=== PATIENT | female | born 1950 | race Caucasian/White ===

== ENCOUNTER 2022-01-05 06:55 | Day surgery (SDC) | payer MEDICARE ==
[~2022-01-05] VITALS: Ht 170.2 cm; Wt 106.0 kg
[~2022-01-05 06:55] MED LIST: ALPR.25 PO; ASPI81CH PO; COENZYME Q10100 MG PO; Hydrochlorothia25 MG PO; MELO7.5 PO; METO25 PO; ROSU5 PO; ZYPITAMAG2 MG PO
--- NOTE | 2022-01-05 19:23 | NUR ---
SHIFT SUMMARY POD 0 L TKA, A/OX 4, VSS, TOLERATING PO, DID WELL AMBULATING c PHYSICAL THERAPY, SPENT PART OF THE DAY UP TO CHAIR AFTER SHE GOT UP THE FIRST TIME, SPINAL SO THIS WAS DONE AFTER GETTING SENSATION IN THE LEGS. PAIN WAS MINIMAL AND CONTROLLED USING ONLY THE NON NARCOTIC SCHEDULED MEDICATIONS. PT WAS A LITTLE ANXIOUS WHEN SHE FIRST CAME OUT TO THE FLOOR, BP WAS A LITTLE LOW BUT WITHIN NORMAL LIMITS (SEE VITALS), PT HAD SOME MILD TREMORS BUE, XANAX GIVEN, WARM BLANKET GIVEN, THERAPEUTIC COMMUNICATION WAS USED TO DISCUSS NEXT STEPS/HOME CARE/INITIAL RECOVERY WHICH HELPED HER SETTLE DOWN. NO ACUTE EVENTS THIS SHIFT, CALL LIGHT IN REACH, REPORT GIVEN TO NEVAEH RN.
--- NOTE | 2022-01-06 04:02 | NUR ---
SHIFT SUMMARY POD1 L TKA. EMILIANO WRAP TO KNEE REMAINS CDI WITH POLAR PACK IN PLACE. UP WITH 1 SBA USING GB + WALKER. 2 OLI + TYLENOL + TORADOL FOR PAIN MANAGEMENT. IV SL. SAKSHI PO. USES CALL LIGHT APPROPRIATELY.
[2022-01-06 05:07] LABS: BASOPHILS ABSOLUTE AUTO 0.06 K/mm3 (0.00-0.23); BASOPHILS PERCENT AUTO 1 % (0-2); EOSINOPHILS ABSOLUTE AUTO 0.36 K/mm3 (0.00-0.68); EOSINOPHILS PERCENT AUTO 4 % (0-6); Hematocrit 39.4 % (33.0-51.0); IMMATURE GRAN ABSOLUTE AUTO 0.03 K/mm3 (0.00-0.10); IMMATURE GRAN PERCENT AUTO 0 % (0-1); LYMPHOCYTES PERCENT AUTO 12 % (21-46); MONOCYTES PERCENT AUTO 11 % (4-13); Mean Corpuscular HGB 30.2 pg (26.0-34.0); Mean Corpuscular Volume 91 fL (80-100); Mean Platelet Volume 9.7 fL (9.1-12.4); NEUTROPHILS ABSOLUTE AUTO 7.52 K/mm3 (1.96-9.15); NEUTROPHILS PERCENT AUTO 73 % (41-73); Platelet Count 221 K/mm3 (150-400); RDW Coefficient Variation 13.2 % (11.7-14.2); RDW Standard Deviation 44.7 fL (35.1-46.3); Red Blood Cell Count 4.31 M/mm3 (3.80-5.20); White Blood Cell Count 10.27 K/mm3 (4.00-11.30)
[2022-01-06 05:23] LABS: Bun/Creatinine Ratio 22.7 (12.0-20.0); Calcium, Blood 8.7 mg/dL (8.5-10.1); Creatinine, Blood 1.28 mg/dL (0.40-1.00); Potassium, Blood 3.7 mmol/L (3.5-5.5)
[2022-01-06] MEDS ORDERED: ASPIR 8181 M1 PO (11:47)
[2022-01-06] MEDS ORDERED: Percocet 5-3251 EACH PO (11:48)
--- NOTE | 2022-01-06 12:39 | NUR ---
DISCHARGE SUMMARY PT A&OX4, VSS/RA, DENIES N&V AT THIS TIME, SAKSHI PO, PAIN MANAGED WELL WITH TYLENOL AND OXY 5 MG, VOIDING WELL. DC INSTRUC PROVIDED, PT REP UNDERSTANDING THOSE INSTRUCTIONS INCLUDING FU WITH SURGEON 2 WEEKS, DRESSING CHANGES, SHORT FREQU WALKS WITH FWW, EXERCISES WITH GAIT BELT TAUGHT BY SURGEON, PHYSICAL THERAPY, AND ICE AND ELEVATE AT REST. LEFT FLOOR VIA WC WITH STOCK MIXER, ALL PERSONAL POSSESSIONS INCLUDING DC PACKET, 2 AQUACEL DRESSINGS AND 1 NARC SCRIPT; TO GO HOME WITH . IV DC'D.
== END 2022-01-06 12:20 | disposition home or self-care (01) ==
LOC: ORSCMMR 06:55 → SURS 11:06 → ORSCMMR 01-06 12:20
PROVIDERS: Orthopaedic Surgery
PROC: 0SRD0JA Replacement of Left Knee Joint with Synthetic Substitute, Uncemented, Open Approach (ICD-10-PCS; principal; 2022-01-05 08:30)
DX: M17.12 Unilateral primary osteoarthritis, left knee (principal); Z87.891 Personal history of nicotine dependence; I10 Essential (primary) hypertension; E78.00 Pure hypercholesterolemia, unspecified; F41.9 Anxiety disorder, unspecified; Z79.899 Other long term (current) drug therapy; Z79.82 Long term (current) use of aspirin; E78.5 Hyperlipidemia, unspecified; N18.9 Chronic kidney disease, unspecified; E66.9 Obesity, unspecified; Z68.36 Body mass index [BMI] 36.0-36.9, adult
CPT/HCPCS: 36415; 73560-LT; 80048; 85025; 97110; 97116; 97162; A9270; C1776; J0171; J0690; J0735; J1885; J2250; J2370; J2405; J2704; J2795; J3010; J7120

== ENCOUNTER 2024-05-01 07:50 | Day surgery (SDC) | payer MEDICARE ==
[~2024-05-01] VITALS: Ht 169 cm; Wt 104.7 kg
[2024-05-01] VITALS (11 sets, daily range): BP systolic 96–150; BP diastolic 55–95
[~2024-05-01 07:50] MED LIST changes: +ASPIR 8181 M1 PO; +Acetaminophen 500 MG Tab PO SCH; +CENTRUM SILVER1 EAC2 PO; +CeFAZolin Sodium 2,000 MG in NS 100 ML IV SCH; +Chlorhexidine Mouth Care 15 ML UDC MT SCH; +Lactated Ringer's 1,000 ML IV SCH; +OLMESARTAN MEDOX5 MG PO; +OxyCODONE HCL 10 MG TABCR PO SCH; +Percocet 5-3251 EACH PO; +REPATHA SU140 MG/1 M SC; +Ropivacaine 0.5% HCl/Pf 123.125 MG,EPINEPHrine HCL 0.25 MG,Ketorolac Tromethamine 15 MG... INFIL SCH; +ZYRTEC10 M1 PO
[2024-05-01] MEDS ORDERED: Tranexamic Acid 100 ML IV SCH (07:51)
[2024-05-01] MEDS ORDERED: propofoL 60 ML IV ONE (08:32)
[2024-05-01] MEDS ORDERED: FentaNYL Citrate 50 MCG/ML 2 ML Injection ONE (08:32)
[2024-05-01] MEDS ORDERED: Dexamethasone Sod Phos 10 MG/ML 1ML VIAL ONE (08:37)
[2024-05-01] MEDS ORDERED: Ondansetron HCl 2 MG / ML 2ML Vial ONE (08:37)
[2024-05-01] MEDS ORDERED: Phenylephrine HCl 100 MCG/ML-NS 10MLSYR (1MG/10ML) ONE (08:37)
[2024-05-01] MEDS ORDERED: DiphenhydrAMINE HCL 25 MG Cap PO PRN (09:30)
[2024-05-01] MEDS ORDERED: TraMADol HCl 50 MG Tab PO PRN (09:35)
[2024-05-01] MEDS ORDERED: HYDROmorphone HCl/Pf 1MG SYR IV PRN (09:35)
[2024-05-01] MEDS ORDERED: Promethazine HCl 25 MG Tab PO PRN (09:35)
[2024-05-01] MEDS ORDERED: Bisacodyl 10 MG Supp PR PRN (09:35)
[2024-05-01] MEDS ORDERED: Magnesium Hydroxide Conc 10 ML UDC PO PRN (09:40)
[2024-05-01] MEDS ORDERED: Metoclopramide HCl 5MG / ML 2ML Vial IV PRN (09:40)
[2024-05-01] MEDS ORDERED: Lactated Ringer's 1,000 ML IV SCH (09:40)
[2024-05-01] MEDS ORDERED: Ondansetron HCl 2 MG / ML 2ML Vial IV PRN (09:40)
[2024-05-01] MEDS ORDERED: propofoL 20 ML IV ONE (09:43)
[2024-05-01] MEDS ORDERED: Loratadine 10 MG Tab PO PRN (10:05)
[2024-05-01] MEDS ORDERED: propofoL 40 ML IV ONE (10:14)
--- NOTE | 2024-05-01 11:30 | NUR ---
ARRIVAL TO UNIT PT ARRIVED TO UNIT VIA BED. A&0 x4 VSS. PT DENIES NAUSEA. IV FLUIDS INFUSING PER EMAR. PT NUMB R/T SPINAL. PT DENIES TINGLING, BRISK CAP REFILL. AWAITING FIRST POST-OP AMBULATION & VOID. RICH AT BEDSIDE. ORIENTED TO ROOM, CALL LIGHT IN REACH, BED IN LOWEST POSITION.
[2024-05-01] MEDS ORDERED: ASPI81CH PO (11:36)
[2024-05-01] MEDS ORDERED: Ketorolac Tromethamine 15mg Vial IV SCH (12:00)
[2024-05-01] MEDS ORDERED: Acetaminophen 500 MG Tab PO SCH (16:00)
[2024-05-01] MEDS ORDERED: CeFAZolin Sodium 2,000 MG in NS 100 ML IV SCH (17:00)
--- NOTE | 2024-05-01 17:24 | NUR ---
DISCHARGE SUMMARY POD 0 R TKA. VSS. TOLERATING ORALS, DENIES N/V. AMBULATES USING FWW c GB & SBA. CLEARED PHYSCIAL THERAPY. VOIDING IND. PT REPORTS PAIN TOLERABLE ON ORAL MEDICATIONS, MEDICATED PER EMAR & POLAR PACK IN USE. ALL PERSONAL BELONGINGS c PT. DISCHARGE INSTRUCTIONS GIVEN, PT VERBALIZES UNDERSTANDING. D/C'd VIA WHEELCHAIR TO POV DRIVEN BY SPOUSE.
[2024-05-01] MEDS ORDERED: Losartan Potassium 25 MG Tab PO SCH (21:00)
[2024-05-01] MEDS ORDERED: Docusate Sodium 100 MG Cap PO SCH (21:00)
[2024-05-02] MEDS ORDERED: Aspirin 81 MG Chew PO SCH (09:00)
[2024-05-02] MEDS ORDERED: Multivitamins/Minerals 1 Tab PO SCH (09:00)
[2024-05-06] MEDS ORDERED: Misc. Injectable SC SCH (09:00)
== END 2024-05-01 17:25 | disposition home or self-care (01) ==
LOC: ORSCMMR 07:50 → ORD 08:15 → ORSCMMR 08:15 → SURS 11:25 → ORSCMMR 17:25
PROVIDERS: Orthopaedic Surgery
PROC: 0SRC0JA Replacement of Right Knee Joint with Synthetic Substitute, Uncemented, Open Approach (ICD-10-PCS; principal; 2024-05-01 08:15)
DX: M17.11 Unilateral primary osteoarthritis, right knee (principal); Z96.652 Presence of left artificial knee joint; I10 Essential (primary) hypertension; E78.5 Hyperlipidemia, unspecified; Z79.899 Other long term (current) drug therapy; E66.9 Obesity, unspecified; Z68.36 Body mass index [BMI] 36.0-36.9, adult
CPT/HCPCS: 73560-RT; 82947; 97110; 97116; 97161; 97530-CQ; A9270; C1776; J0171; J0690; J0735; J1100; J1885; J2371; J2405; J2704; J2795; J3010; J7120